=== PATIENT | female | born 1995 ===

== ENCOUNTER → 2022-01-06 | Outpatient (CLI) | payer MEDICARE, MEDICAID ==
[2022-01-06 16:33] LABS: Basophils # (auto) 0.1 10 ^3/uL (0-0.2); Eosinophils # (auto) 0.1 10 ^3/uL (0-0.8); Hemoglobin 12.4 g/dL (12.2-16.2); Mean Corpuscular Hgb Conc. 31.1 g/dL (32.0-36.0); Monocytes # (auto) 0.8 10 ^3/uL (0-1.3); Monocytes % (auto) 4.1 % (0.0-12.0)
[2022-01-06 16:34] LABS: Basophils % (auto) 0.4 % (0.0-2.0); Eosinophils % (auto) 0.6 % (0.0-7.0); Hematocrit 39.6 % (36.0-46.0); Lymphocytes # (auto) 3.6 10 ^3/uL (0.4-5.4); Lymphocytes % (auto) 19.3 % (10.0-50.0); Mean Corpuscular Hemoglobin 23.6 pg (28.0-32.0); Mean Corpuscular Volume 75.9 fL (80.0-100.0); Neutrophils % (auto) 75.6 % (37.0-80.0); Red Blood Cells 5.23 10^6/uL (4.0-5.20); Red Cell Distribution Width 16.2 % (11.8-14.3); White Blood Cell 18.5 10^3/uL (4.4-10.8)
[2022-01-06 16:43] LABS: Albumin 3.3 g/dL (3.4-5.0); BUN/Creatinine Ratio 12.7; Calcium 9.3 mg/dL (8.5-10.1); Potassium 3.5 mmol/L (3.5-5.1)
[2022-01-06 16:47] LABS: Bilirubin, Total 0.3 mg/dL (0.2-1.0); Total Protein 8.1 g/dL (6.4-8.2)
[2022-01-06 16:50] LABS: Free T4 (Free Thyroxine) 1.03 ng/dL (0.89-1.76)
[2022-01-06 18:06] LABS: Urine Blood Negative /uL (Negative)
== END | disposition home or self-care (01) ==
LOC: LAB 12:36
PROVIDERS: ATTEND Internal Medicine
DX: I10 Essential (primary) hypertension (principal); D51.3 Other dietary vitamin B12 deficiency anemia; D64.9 Anemia, unspecified; E11.9 Type 2 diabetes mellitus without complications; E55.9 Vitamin D deficiency, unspecified; R00.2 Palpitations; R53.1 Weakness; R30.0 Dysuria
CPT/HCPCS: 36415; 80053; 80061; 81003; 82607; 83036; 84439; 84443; 85025

== ENCOUNTER → 2022-02-11 | Outpatient (CLI) | payer MEDICARE, MEDICAID ==
[~2022-02-11] VITALS: Ht 180.3 cm; Wt 111.6 kg
[~2022-02-11] MED LIST: ADENOSINE 90 MG/30 ML INJ IV ONE; ADENOSINE 94 MG in GIVE UN-DILUTED 0 ML IV ONE
== END | disposition home or self-care (01) ==
LOC: Rad HDHVI 08:09
PROVIDERS: ATTEND Internal Medicine
DX: R07.89 Other chest pain (principal); R06.02 Shortness of breath; R42 Dizziness and giddiness; I10 Essential (primary) hypertension; R63.8 Other symptoms and signs concerning food and fluid intake; E11.9 Type 2 diabetes mellitus without complications; E78.5 Hyperlipidemia, unspecified; Z82.49 Family history of ischemic heart disease and other diseases of the circulatory system
CPT/HCPCS: 78452; 93005; 93306; 96374; 96375; A9500; J0153